=== PATIENT | female | born 1940 | race Caucasian/White ===

== ENCOUNTER 2019-11-25 15:30 | Emergency (ER) | payer MEDICARE, BC ==
[2019-11-25 15:50] VITALS: BP 171/88; PULSE 71
[2019-11-25] MEDS ORDERED: Sodium Chloride 0.9% 10 ML Syringe FLUSH PRN (16:07)
--- NOTE | 2019-11-25 16:40 | EDM.PDOC ---
ED HPI GENERAL MEDICAL PROBLEM - General Chief Complaint: Chest Pain Stated Complaint: CHEST PAIN Time Seen by Provider: 11/25/19 16:11 Source of Information: Reports: Patient History Limitations: Reports: No Limitations - History of Present Illness INITIAL COMMENTS - FREE TEXT/NARRATIVE: Patient is a 79-year-old female presenting to the emergency department with complaints of intermittent left-sided chest pain over the last 1 to 2 weeks. She describes it as a sharp pain in her left chest wall that is worse with deep breathing. She also complains of feeling occasionally "off balance "but states that she stays very busy. She denies any headaches, confusion, shortness of breath, diaphoresis, or nausea associated with these events. She denies any significant cardiac history. Pain was not present at the time of my exam. - Related Data Allergies Allergy/AdvReac Type Severity Reaction Status Date / Time infliximab [From Remicade] Allergy Airway Verified 11/25/19 15:50 Tightness Home Meds: Home Meds Methotrexate 2.5 mg PO WE 04/11/14 [History] Tocilizumab [Actemra] 162 mg SQ 04/11/14 [History] Escitalopram Oxalate [Lexapro] 10 mg PO DAILY 11/25/19 [History] Folic Acid 3 mg PO DAILY 11/25/19 [History] Ibuprofen 200 mg PO Q6HR PRN 11/25/19 [History] LORazepam [Ativan] 0.5 mg PO DAILY PRN 11/25/19 [History] Meloxicam 15 mg PO DAILY 11/25/19 [History] Pantoprazole [ProTONIX] 40 mg PO DAILY 11/25/19 [History] tiZANidine HCl [Tizanidine HCl] 1 tab PO ASDIRECTED 11/25/19 [History] Past Medical History HEENT History: Reports: Impaired Vision Musculoskeletal History: Reports: Arthritis - Past Surgical History Female Surgical History: Reports: Breast Biopsy, Hysterectomy, Other (See Below) Musculoskeletal Surgical History: Reports: Carpal Tunnel, Knee Replacement, Other (See Below) Social & Family History - Family History Family Medical History: Noncontributory - Tobacco Use Smoking Status *Q: Never Smoker ED ROS GENERAL - Review of Systems Review Of Systems: See Below Constitutional: Reports: No Symptoms. Denies: Fever, Chills, Weakness HEENT: Reports: No Symptoms Respiratory: Denies: Shortness of Breath, Cough Cardiovascular: Reports: Chest Pain. Denies: Dyspnea on Exertion, Syncope Endocrine: Reports: No Symptoms GI/Abdominal: Reports: No Symptoms : Reports: No Symptoms Musculoskeletal: Reports: No Symptoms Skin: Reports: No Symptoms Neurological: Reports: Dizziness (occasional) Psychiatric: Reports: No Symptoms Hematologic/Lymphatic: Reports: No Symptoms Immunologic: Reports: No Symptoms ED EXAM, GENERAL - Physical Exam Exam: See Below General Appearance: Alert, WD/WN, No Apparent Distress Respiratory/Chest: No Respiratory Distress, Lungs Clear, Normal Breath Sounds, No Accessory Muscle Use, Chest Non-Tender Cardiovascular: Normal Peripheral Pulses, Regular Rate, Rhythm, No Edema, No Gallop, No JVD, No Murmur, No Rub GI/Abdominal: Normal Bowel Sounds, Soft, Non-Tender, No Organomegaly, No Distention, No Abnormal Bruit, No Mass Neurological: Alert, Oriented, CN II-XII Intact, Normal Cognition, Normal Gait, Normal Reflexes, No Motor/Sensory Deficits Psychiatric: Normal Affect, Normal Mood Skin Exam: Warm, Dry, Intact, Normal Color, No Rash EKG INTERPRETATION EKG Date: 11/26/19 Time: 16:34 Rhythm: NSR Rate (Beats/Min): 64 [place]: Normal P-Wave: Present () QRS: Normal ST-T: Normal () QT: Normal Course - Vital Signs Last Recorded V/S: Last Vital Signs Temp 97.8 F 11/25/19 15:47 Pulse 71 11/25/19 15:47 Resp 16 11/25/19 15:47 BP 171/88 H 11/25/19 15:47 Pulse Ox 95 11/25/19 15:47 - Orders/Labs/Meds Orders: Active Orders 24 hr Category Date Time Status Peripheral IV Insertion Adult [OM.PC] Stat Oth 11/25/19 16:07 Ordered Labs: Laboratory Tests 11/25/19 11/25/19 11/25/19 Range/Units 16:28 16:28 16:28 WBC 7.32 (3.98-10.04) K/mm3 RBC 3.93 L (3.98-5.22) M/mm3 Hgb 11.5 D (11.2-15.7) gm/dl Hct 36.0 (34.1-44.9) % MCV 91.6 (79.4-94.8) fl MCH 29.3 (25.6-32.2) pg MCHC 31.9 L (32.2-35.5) g/dl RDW Std Deviation 45.1 (36.4-46.3) fL Plt Count 218 (182-369) K/mm3 MPV 9.1 L (9.4-12.3) fl Neut % (Auto) 68.3 (34.0-71.1) % Lymph % (Auto) 18.7 L (19.3-51.7) % [place] % (Auto) 10.8 (4.7-12.5) % Eos % (Auto) 1.8 (0.7-5.8) Baso % (Auto) 0.3 (0.1-1.2) % Neut # (Auto) 5.00 (1.56-6.13) K/mm3 Lymph # (Auto) 1.37 (1.18-3.74) K/mm3 [place] # (Auto) 0.79 H (0.24-0.36) K/mm3 Eos # (Auto) 0.13 (0.04-0.36) K/mm3 Baso # (Auto) 0.02 (0.01-0.08) K/mm3 D-Dimer, Quantitative 0.42 (0.19-0.50) mg/L Sodium 137 (136-145) mEq/L Potassium 4.2 (3.5-5.1) mEq/L Chloride 102 (98-107) mEq/L Carbon Dioxide 29 (21-32) mEq/L Anion Gap 10.2 (5-15) BUN 18 (7-18) mg/dL Creatinine 0.9 (0.55-1.02) mg/dL Est Cr Clr Drug Dosing TNP Estimated GFR (MDRD) > 60 (>60) mL/min BUN/Creatinine Ratio 20.0 H (14-18) Glucose 109 (83-115) mg/dL Calcium 8.8 (8.5-10.1) mg/dL Total Bilirubin 0.5 (0.2-1.0) mg/dL AST 25 (15-37) U/L ALT 29 (14-59) U/L Alkaline Phosphatase 72 (46-116) U/L Troponin I < 0.017 (0.00-0.056) ng/mL C-Reactive Protein 0.3 (<1.0) mg/dL Total Protein 6.2 L (6.4-8.2) g/dl Albumin 3.4 (3.4-5.0) g/dl Globulin 2.8 gm/dL Albumin/Globulin Ratio 1.2 (1-2) Meds: Medications Discontinued Medications Generic Name Dose Route Start Last Admin Trade Name Freq PRN Reason Stop Dose Admin Sodium Chloride 10 ml 11/25/19 16:07 Saline Flush FLUSH ASDIRECTED PRN Keep Vein Open - Re-Assessments/Exams Free Text/Narrative Re-Assessment/Exam: Patient is a 79-year-old female presenting to the emergency department with complaints of intermittent left-sided chest pain worse with deep breathing over the course of the last few weeks. She also states she occasionally feels "off balance "when she is up moving around, however she feels this may be related to over exerting herself as she states she is always busy. Chest pain was not present at the time of my exam, however she does have some tenderness to her left chest wall. She denies any shortness of breath or diaphoresis associated with this pain. She has no significant cardiac history. Denies any recent headaches. I have ordered a CBC, CMP, CRP, d-dimer, troponin, chest x-ray, and an EKG of her heart. 11/25/19 18:17 11/25/19 18:20 Hematology was grossly unremarkable. A d-dimer was negative. Troponin was negative. Her electrolytes were all normal. EKG showed a normal sinus rhythm with no ischemic changes. Chest x-ray was normal. Discussed these findings with the patient. My suspicion is that she is having musculoskeletal chest wall pain which is why it is tender to palpation and that occasionally she has muscle spasms associated with it. Recommend that she use [id number] Tylenol and ibuprofen as needed. Discussed that applying heat to the area may also be beneficial. She is in agreement with this plan. Discharge instructions as documented. Departure - Departure Time of Disposition: 18:20 Disposition: Home, Self-Care 01 Condition: Good Clinical Impression: Left-sided chest wall pain Instructions: Chest Wall Pain, [id number] Referrals: Kathleen Francisco MD [Primary Care Provider] - Forms: ED Department Discharge Additional Instructions: You were seen in the emergency department today for intermittent left-sided chest pain over the last few weeks. Your work-up included blood work, an EKG of your heart, and a chest x-ray. Your work-up was completely normal. There is no evidence of a blood clot either in your lungs or your legs. Your troponin which is your cardiac enzyme was also normal indicating that this pain is likely not related to your heart. Your EKG was normal and showed no evidence of cardiac involvement. Your chest x-ray was also found to be normal. On exam, your chest wall was tender when pushed on. This raises the likelihood that your pain is musculoskeletal in nature and that the intermittent pain you are experiencing is likely spasms of the chest wall muscles. Recommend that you use [id number] Tylenol and ibuprofen as needed for pain. Applying heat to the area may also be beneficial. If you experience any new or worsening symptoms of concern, please do not hesitate to return to the emergency department. Sepsis Event Note (ED) - Evaluation Sepsis Screening Result: No Definite Risk - Focused Exam Vital Signs: Vital Signs Temp Pulse Resp BP Pulse Ox 11/25/19 15:47 97.8 F 71 16 171/88 H 95 - My Orders Last 24 Hours: My Active Orders 11/25/19 16:07 Peripheral IV Insertion Adult [OM.PC] Stat - Assessment/Plan Last 24 Hours: My Active Orders 11/25/19 16:07 Peripheral IV Insertion Adult [OM.PC] Stat
--- NOTE | 2019-11-25 17:00 | CR ---
Chest: 2 views of the chest was obtained. Comparison: No previous chest x-ray is available. Heart is enlarged. Tortuous thoracic aorta is seen. Lungs are clear with no acute parenchymal change. Slight scoliosis is noted within the spine with mild scattered degenerative change. Previous lumbar spine surgery is noted. Impression: 1. Findings as described above. 2. Nothing acute is appreciated. Diagnostic code #2 Study was dictated in [facility]T
== END 2019-11-25 18:30 | disposition home or self-care (01) ==
LOC: JD.ED 15:30
DX: R07.89 Other chest pain (principal); M19.90 Unspecified osteoarthritis, unspecified site; Z79.899 Other long term (current) drug therapy; Z88.8 Allergy status to other drugs, medicaments and biological substances
CPT/HCPCS: 36415; 71046; 71046-26; 80053; 84484; 85025; 85379; 86140; 93005; 99285-25

== ENCOUNTER → 2021-02-08 | Day surgery (SDC) | payer MEDICARE, BC ==
[2021-02-08] MEDS: Brimonidine 0.2% Ophth Soln 5 ML Bottle EYERT SCH ×2 (09:22→10:26)
[2021-02-08] MEDS: Phenylephrine 2.5% Ophth Soln 2 ML Bot EYERT SCH ×2 (09:32→09:44)
[2021-02-08] MEDS: Tropicamide 1% Ophth Soln 15 ML Bottle EYERT SCH ×2 (09:41→09:47)
[2021-02-08 13:34] VITALS: BP 158/63; PULSE 54
== END ==
LOC: JD.SDS 08:09
PROVIDERS: ATTEND Ophthalmology
DX: H26.493 Other secondary cataract, bilateral (principal); H16.103 Unspecified superficial keratitis, bilateral; H16.223 Keratoconjunctivitis sicca, not specified as Sjogren's, bilateral; H02.831 Dermatochalasis of right upper eyelid; H02.834 Dermatochalasis of left upper eyelid; H35.3131 Nonexudative age-related macular degeneration, bilateral, early dry stage; H35.363 Drusen (degenerative) of macula, bilateral; M06.9 Rheumatoid arthritis, unspecified; Z98.890 Other specified postprocedural states; Z79.899 Other long term (current) drug therapy; Z96.1 Presence of intraocular lens

== ENCOUNTER 2021-04-12 07:16 | Day surgery (SDC) | payer MEDICARE, BC ==
[~2021-04-12 07:16] MED LIST: Lactated Ringers 1,000 ML IV SCH; Lidocaine 1% 4 ML ONE; Lidocaine 1%/Sod Bicarbonate in NS 8.4% 1 ML Syringe IDERM PRN; Propofol 200 MG/20 ML SDV ONE; Sodium Chloride 0.9% 10 ML Syringe FLUSH PRN; Sodium Chloride 0.9% 10 ML Syringe FLUSH SCH
[2021-04-12 08:51] VITALS: PULSE 73
[2021-04-12 09:00] VITALS: BP 139/65
== END 2021-04-12 09:32 | disposition home or self-care (01) ==
LOC: JD.SDS 07:16
PROVIDERS: ATTEND Surgery
DX: Z12.11 Encounter for screening for malignant neoplasm of colon (principal); K57.30 Diverticulosis of large intestine without perforation or abscess without bleeding; K31.89 Other diseases of stomach and duodenum; K31.7 Polyp of stomach and duodenum; K44.9 Diaphragmatic hernia without obstruction or gangrene; K21.00 Gastro-esophageal reflux disease with esophagitis, without bleeding; K64.8 Other hemorrhoids; Z86.010 Personal history of colon polyps; F32.A Depression, unspecified; H21.9 Unspecified disorder of iris and ciliary body; M81.0 Age-related osteoporosis without current pathological fracture; M06.9 Rheumatoid arthritis, unspecified; Z88.8 Allergy status to other drugs, medicaments and biological substances; Z79.899 Other long term (current) drug therapy; F41.9 Anxiety disorder, unspecified; Z98.890 Other specified postprocedural states
CPT/HCPCS: 43239; G0105; J2704; J7120; 00812; 88305; 99100

== ENCOUNTER 2023-06-16 11:47 | Emergency (ER) | payer MEDICARE, BC ==
[2023-06-16 12:06] VITALS: BP 147/74; PULSE 80
[2023-06-16] MEDS ORDERED: Sodium Chloride 0.9% 10 ML Syringe FLUSH PRN (12:14)
[2023-06-16 12:26] LABS: BASOPHILS PERCENT AUTO 0.5 % (0.0-1.0); EOSINOPHILS ABSOLUTE AUTO 0.2 K/mm3 (0.0-0.4); EOSINOPHILS PERCENT AUTO 4.1 % (0.0-6.0); HEMATOCRIT 36.3 % (37.0-47.0); HEMOGLOBIN 11.9 gm/dl (12.0-16.0); IMMATURE GRAN ABSOLUTE AUTO 0.05 K/mm3 (0.00-0.05); IMMATURE GRAN PERCENT AUTO 1.2 % (0.0-0.4); LYMPHOCYTES ABSOLUTE AUTO 1.1 K/mm3 (1.0-4.8); MEAN CORPUSCULAR HEMOGLOBIN 29.6 pg (28.0-32.0); MEAN CORPUSCULAR HGB CONC 32.8 g/dl (32.0-36.0); MEAN CORPUSCULAR VOLUME 90.3 fl (83.0-99.0); MEAN PLATELET VOLUME 9.4 fl (9.4-12.3); MONOCYTES ABSOLUTE AUTO 0.6 K/mm3 (0.0-0.8); MONOCYTES PERCENT AUTO 14.9 % (0.0-8.0); NEUTROPHILS ABSOLUTE AUTO 2.2 K/mm3 (1.8-7.7); NEUTROPHILS PERCENT AUTO 53.3 % (41.0-71.0); PLATELET COUNT,PLT 173 K/mm3 (150-400); RED BLOOD CELL COUNT 4.02 M/mm3 (4.10-5.30); WHITE BLOOD CELL COUNT,WBC 4.15 K/mm3 (3.9-11.3)
[2023-06-16 12:54] LABS: A/G RATIO 1.4 (1-2); ALANINE AMINOTRANSFERASE,ALT 26 U/L (14-59); ALBUMIN 3.8 g/dl (3.4-5.0); ALKALINE PHOSPHATASE 63 U/L (46-116); ANION GAP 13.1 (5-15); ASPARTATE AMNIOTRANSFERASE,AST 26 U/L (15-37); BILIRUBIN TOTAL 0.7 mg/dL (0.2-1.0); BLOOD UREA NITROGEN,BUN 19 mg/dL (7-18); BUN/CREATININE RATIO 23.8 (14-18); C-REACTIVE PROTEIN 0.08 mg/dL (<0.30); CALCIUM 9.4 mg/dL (8.5-10.1); CARBON DIOXIDE,CO2 28 mEq/L (21-32); CHLORIDE,CL 103 mEq/L (98-107); CREATININE 0.8 mg/dL (0.55-1.02); ESTIMATED GFR 73 mL/min (>60); GLUCOSE RANDOM 90 mg/dL (70-99); MAGNESIUM 1.7 mg/dL (1.8-2.4); POTASSIUM,K 4.1 mEq/L (3.5-5.1); PROTEIN TOTAL,TP 6.5 g/dl (6.4-8.2); SODIUM,NA 140 mEq/L (136-145); TROPONIN I HIGH SENSITIVITY 7 pg/mL (<=51); TSH 2.028 uIU/mL (0.358-3.74)
[2023-06-16 13:05] LABS: APPEARANCE,URINE CLEAR (Clear); BILIRUBIN,URINE NEGATIVE (Negative); COLOR,URINE YELLOW (Yellow); GLUCOSE,URINE NEGATIVE (Negative); KETONES,URINE NEGATIVE (Negative); LEUKOCYTE ESTERASE,URINE 1+ (Negative); NITRITE,URINE NEGATIVE (Negative); OCCULT BLOOD,URINE NEGATIVE (Negative); PROTEIN,URINE NEGATIVE (Negative); UROBILINOGEN,URINE 0.2 (0.2-1.0)
[2023-06-16 13:24] LABS: BACTERIA,URINE FEW /hpf (FEW); MUCUS,URINE RARE /hpf (FEW); RBC,URINE 0-5 /hpf (0-5); SQUAMOUS EPITHELIAL CELLS,UR 0-5 /hpf (0-5); WBC,URINE 0-5 /hpf (0-5)
[2023-06-16] MEDS: Lactated Ringers 1,000 ML IV SCH (14:00)
== END 2023-06-16 15:28 | disposition home or self-care (01) ==
LOC: JD.ED 11:47
DX: R29.810 Facial weakness (principal); R07.89 Other chest pain; K21.9 Gastro-esophageal reflux disease without esophagitis; Z88.8 Allergy status to other drugs, medicaments and biological substances; Z79.899 Other long term (current) drug therapy
CPT/HCPCS: 36415; 70450; 80053; 81001; 81003; 83735; 83880; 84443; 84484; 85025; 86140; 87086; 93005; 96360; 99285; J7120

== ENCOUNTER 2023-07-11 08:07 | Inpatient (IN) | payer MEDICARE, BC ==
[2023-07-11] MEDS: Metoclopramide 10 MG/2 ML SDV IVPUSH ONE (10:13)
[2023-07-11] MEDS: diphenhydrAMINE 50 MG/ML SDV IVPUSH ONE (10:15)
[2023-07-11] MEDS: HYDROmorphone 0.5 MG/0.5 ML Syringe IVPUSH ONE ×2 (10:17→15:18)
[2023-07-11 10:47] LABS: HEMATOCRIT 40.1 % (37.0-47.0); HEMOGLOBIN 13.1 gm/dl (12.0-16.0); MEAN CORPUSCULAR HEMOGLOBIN 30.3 pg (28.0-32.0); MEAN CORPUSCULAR HGB CONC 32.7 g/dl (32.0-36.0); MEAN CORPUSCULAR VOLUME 92.6 fl (83.0-99.0); MEAN PLATELET VOLUME 10.1 fl (9.4-12.3); PLATELET COUNT,PLT 136 K/mm3 (150-400); RED BLOOD CELL COUNT 4.33 M/mm3 (4.10-5.30); WHITE BLOOD CELL COUNT,WBC 8.71 K/mm3 (3.9-11.3)
[2023-07-11 10:52] LABS: LACTIC ACID 1.5 mmol/L (0.4-2.0)
[2023-07-11 10:53] LABS: INR 0.96; PROTHROMBIN TIME 10.3 SECONDS (9.7-12.0)
[2023-07-11 10:54] LABS: PTT,PARTIAL THROMBOPLSTIN TIME 24.5 SECONDS (21.7-31.4)
[2023-07-11 10:55] LABS: A/G RATIO 1.4 (1-2); ANION GAP 12.7 (5-15); BILIRUBIN TOTAL 0.9 mg/dL (0.2-1.0); BUN/CREATININE RATIO 13.3 (14-18); C-REACTIVE PROTEIN 0.31 mg/dL (<0.30); CREATININE 0.9 mg/dL (0.55-1.02); EST CRCL DRUG DOSING (CG) 42.62 mL/min; MAGNESIUM 1.6 mg/dL (1.8-2.4); POTASSIUM,K 3.7 mEq/L (3.5-5.1); PROTEIN TOTAL,TP 6.9 g/dl (6.4-8.2)
[2023-07-11] MEDS: Dextrose 5%-0.9% NaCl 1,000 ML IV SCH (11:13)
[2023-07-11] MEDS: cefTRIAXone 2 GM in Sodium Chloride 0.9% 100 ML IV ONE (11:14)
[2023-07-11 12:07] LABS: BAND PERCENT MAN 5 % (0-10); BASOPHILS PERCENT MAN 0 (0.1-1.2); EOSINOPHILS PERCENT MAN 1 % (0.7-5.8); LYMPHOCYTES % ATYPICAL MANUAL 0 %; LYMPHOCYTES PERCENT MAN 10 % (20-40); MONOCYTES PERCENT MAN 1 % (2-10)
[2023-07-11 12:09] LABS: PLATELET COUNT ESTIMATE DECREASED
[2023-07-11] MEDS ORDERED: Ondansetron 4 MG/2 ML SDV IV PRN (14:21)
[2023-07-11] MEDS ORDERED: Ondansetron 4 MG Tab.DIS PO PRN (14:21)
[2023-07-11] MEDS ORDERED: Piperacillin/Tazobactam 4.5 GM in Sodium Chloride 0.9% 100 ML IV SCH (14:30)
[2023-07-11] MEDS: Piperacillin/Tazobactam 4.5 GM in Sodium Chloride 0.9% 100 ML IV ONE (15:35)
[2023-07-11] MEDS: Heparin Sodium 5,000 Units/ML Vial SUBCUT SCH (15:53)
[2023-07-11] MEDS: VANCOmycin 1.25 GM/250 ML 1.25 GM in Premix Bag 1 BAG IV SCH (17:59)
[2023-07-11] MEDS: Acetaminophen/HYDROcodone 325-5 MG Tab PO PRN (18:08)
[2023-07-11 19:43] LABS: APPEARANCE,URINE CLEAR (Clear); BILIRUBIN,URINE NEGATIVE (Negative); COLOR,URINE YELLOW (Yellow); GLUCOSE,URINE NEGATIVE (Negative); KETONES,URINE NEGATIVE (Negative); LEUKOCYTE ESTERASE,URINE TRACE (Negative); NITRITE,URINE NEGATIVE (Negative); OCCULT BLOOD,URINE NEGATIVE (Negative); PROTEIN,URINE 1+ (Negative); UROBILINOGEN,URINE 0.2 (0.2-1.0)
[2023-07-11 19:50] LABS: BACTERIA,URINE MODERATE /hpf (FEW); MUCUS,URINE FEW /hpf (FEW); RBC,URINE 0-5 /hpf (0-5); SQUAMOUS EPITHELIAL CELLS,UR 0-5 /hpf (0-5)
[2023-07-11] MEDS: Piperacillin/Tazobactam 4.5 GM in Sodium Chloride 0.9% 100 ML IV SCH (23:07)
[2023-07-12 05:32] LABS: HEMATOCRIT 33.8 % (37.0-47.0); IMMATURE GRAN ABSOLUTE AUTO 0.14 K/mm3 (0.00-0.05); IMMATURE GRAN PERCENT AUTO 2.2 % (0.0-0.4); LYMPHOCYTES ABSOLUTE AUTO 0.2 K/mm3 (1.0-4.8); LYMPHOCYTES PERCENT AUTO 3.4 % (24.0-44.0); MEAN CORPUSCULAR HEMOGLOBIN 30.5 pg (28.0-32.0); MEAN CORPUSCULAR HGB CONC 33.4 g/dl (32.0-36.0); MEAN CORPUSCULAR VOLUME 91.1 fl (83.0-99.0); MEAN PLATELET VOLUME 10.2 fl (9.4-12.3); MONOCYTES ABSOLUTE AUTO 0.1 K/mm3 (0.0-0.8); NEUTROPHILS PERCENT AUTO 92.4 % (41.0-71.0); PLATELET COUNT,PLT 87 K/mm3 (150-400); RED BLOOD CELL COUNT 3.71 M/mm3 (4.10-5.30); WHITE BLOOD CELL COUNT,WBC 6.46 K/mm3 (3.9-11.3)
[2023-07-12 05:35] LABS: HEMOGLOBIN 11.3 gm/dl (12.0-16.0)
[2023-07-12 05:38] LABS: ANION GAP 14.4 (5-15); BUN/CREATININE RATIO 12.9 (14-18); CALCIUM 7.8 mg/dL (8.5-10.1); CREATININE 0.7 mg/dL (0.55-1.02); EST CRCL DRUG DOSING (CG) 52.58 mL/min; POTASSIUM,K 3.4 mEq/L (3.5-5.1); VANCOMYCIN RANDOM 6.2 ug/mL
[2023-07-12 05:51] LABS: SLIDE REVIEW ABNORMAL SMEAR
[2023-07-12] MEDS ORDERED: ESTRADIOL TOP SCH (08:00)
[2023-07-12] MEDS ORDERED: D-Mannose 500 MG Cap PO SCH (09:00)
[2023-07-12] MEDS: Folic Acid 1 MG Tab PO SCH (09:00)
[2023-07-12] MEDS: traMADol 50 MG Tab PO PRN (09:01)
[2023-07-12] MEDS: Pantoprazole 40 MG Tab.CR PO SCH (09:01)
[2023-07-12] MEDS: DULoxetine 30 MG Cap PO SCH (09:01)
[2023-07-12] MEDS: Acetaminophen 325 MG Tab PO PRN (10:21)
[2023-07-12] MEDS: VANCOmycin 1.5 GM/300 ML 1.5 GM in Premix Bag 1 BAG IV SCH (18:14)
[2023-07-12] MEDS: Magnesium Oxide 400 MG Tab PO SCH (18:19)
[2023-07-12] MEDS: Docusate Sodium 100 MG Cap PO PRN (18:22)
[2023-07-13] MEDS: ceFAZolin 2 GM in Sodium Chloride 0.9% 50 ML IV SCH (08:25)
[2023-07-13] MEDS: Polyethylene Glycol 3350 Powder 17 GM Packet PO SCH (17:43)
[2023-07-14 05:29] LABS: BASOPHILS PERCENT AUTO 0.4 % (0.0-1.0); EOSINOPHILS ABSOLUTE AUTO 0.1 K/mm3 (0.0-0.4); EOSINOPHILS PERCENT AUTO 0.9 % (0.0-6.0); HEMATOCRIT 34.3 % (37.0-47.0); HEMOGLOBIN 11.7 gm/dl (12.0-16.0); IMMATURE GRAN ABSOLUTE AUTO 0.07 K/mm3 (0.00-0.05); IMMATURE GRAN PERCENT AUTO 1.3 % (0.0-0.4); LYMPHOCYTES ABSOLUTE AUTO 1.2 K/mm3 (1.0-4.8); LYMPHOCYTES PERCENT AUTO 22.6 % (24.0-44.0); MEAN CORPUSCULAR HEMOGLOBIN 30.5 pg (28.0-32.0); MEAN CORPUSCULAR HGB CONC 34.1 g/dl (32.0-36.0); MEAN CORPUSCULAR VOLUME 89.3 fl (83.0-99.0); MEAN PLATELET VOLUME 10.9 fl (9.4-12.3); MONOCYTES ABSOLUTE AUTO 0.7 K/mm3 (0.0-0.8); MONOCYTES PERCENT AUTO 12.3 % (0.0-8.0); NEUTROPHILS ABSOLUTE AUTO 3.3 K/mm3 (1.8-7.7); NEUTROPHILS PERCENT AUTO 62.5 % (41.0-71.0); PLATELET COUNT,PLT 85 K/mm3 (150-400); RED BLOOD CELL COUNT 3.84 M/mm3 (4.10-5.30); WHITE BLOOD CELL COUNT,WBC 5.35 K/mm3 (3.9-11.3)
[2023-07-14 05:47] LABS: ANION GAP 10.3 (5-15); BUN/CREATININE RATIO 7.1 (14-18); CALCIUM 8.3 mg/dL (8.5-10.1); CREATININE 0.7 mg/dL (0.55-1.02); EST CRCL DRUG DOSING (CG) 52.58 mL/min; POTASSIUM,K 3.3 mEq/L (3.5-5.1)
[2023-07-14 05:55] LABS: SLIDE REVIEW ABNORMAL SMEAR
[2023-07-14] MEDS: Bisacodyl 10 MG Supp RECTAL ONE (13:41)
[2023-07-14] MEDS: VANCOmycin 1.5 GM/300 ML 1.5 GM in Premix Bag 1 BAG IV SCH (17:07)
[2023-07-15 04:50] LABS: BASOPHILS PERCENT AUTO 0.4 % (0.0-1.0); EOSINOPHILS PERCENT AUTO 0.6 % (0.0-6.0); HEMATOCRIT 31.5 % (37.0-47.0); HEMOGLOBIN 10.7 gm/dl (12.0-16.0); IMMATURE GRAN ABSOLUTE AUTO 0.07 K/mm3 (0.00-0.05); IMMATURE GRAN PERCENT AUTO 1.5 % (0.0-0.4); LYMPHOCYTES ABSOLUTE AUTO 1.4 K/mm3 (1.0-4.8); LYMPHOCYTES PERCENT AUTO 29.5 % (24.0-44.0); MEAN CORPUSCULAR VOLUME 88.2 fl (83.0-99.0); MEAN PLATELET VOLUME 9.9 fl (9.4-12.3); MONOCYTES ABSOLUTE AUTO 0.9 K/mm3 (0.0-0.8); MONOCYTES PERCENT AUTO 18.9 % (0.0-8.0); NEUTROPHILS ABSOLUTE AUTO 2.3 K/mm3 (1.8-7.7); NEUTROPHILS PERCENT AUTO 49.1 % (41.0-71.0); PLATELET COUNT,PLT 96 K/mm3 (150-400); RED BLOOD CELL COUNT 3.57 M/mm3 (4.10-5.30); WHITE BLOOD CELL COUNT,WBC 4.75 K/mm3 (3.9-11.3)
[2023-07-15 05:17] LABS: A/G RATIO 1.1 (1-2); ALBUMIN 2.8 g/dl (3.4-5.0); ANION GAP 14.4 (5-15); BILIRUBIN TOTAL 0.4 mg/dL (0.2-1.0); C-REACTIVE PROTEIN 0.29 mg/dL (<0.30); CALCIUM 8.1 mg/dL (8.5-10.1); CREATININE 0.5 mg/dL (0.55-1.02); EST CRCL DRUG DOSING (CG) 73.62 mL/min; POTASSIUM,K 3.4 mEq/L (3.5-5.1); PROTEIN TOTAL,TP 5.3 g/dl (6.4-8.2)
[2023-07-15 05:47] LABS: SLIDE REVIEW ABNORMAL SMEAR
[2023-07-15 15:12] VITALS: BP 135/89; PULSE 75
== END 2023-07-15 16:35 | DRG 540 ==
LOC: JD.ED 08:07 → JD.MS 14:21
PROVIDERS: ADMIT Hospitalist; ATTEND Internal Medicine
DX: M86.9 Osteomyelitis, unspecified (principal); D84.821 Immunodeficiency due to drugs; L03.116 Cellulitis of left lower limb; D84.9 Immunodeficiency, unspecified; R78.81 Bacteremia; M00.072 Staphylococcal arthritis, left ankle and foot; Z66 Do not resuscitate; M21.612 Bunion of left foot; H54.7 Unspecified visual loss; K21.9 Gastro-esophageal reflux disease without esophagitis; Z96.659 Presence of unspecified artificial knee joint; I50.9 Heart failure, unspecified; M48.00 Spinal stenosis, site unspecified; M05.79 Rheumatoid arthritis with rheumatoid factor of multiple sites without organ or systems involvement; R41.0 Disorientation, unspecified; B95.61 Methicillin susceptible Staphylococcus aureus infection as the cause of diseases classified elsewhere; Z91.030 Bee allergy status; Z88.8 Allergy status to other drugs, medicaments and biological substances; Z79.899 Other long term (current) drug therapy; Z79.52 Long term (current) use of systemic steroids; Z90.710 Acquired absence of both cervix and uterus; Z98.890 Other specified postprocedural states
CPT/HCPCS: 36415; 71045; 80053; 83605; 83735; 83880; 84484; 85007; 85027; 85610; 85652; 85730; 86140; 87040 ×2; 87077; 87186; 93005; 96360; 96361; 99285; J0696; J1170; J1200; J2765; J3490; J7042; 73630-26-LT; 73630-LT; 73718-26-LT; 73718-LT; 80048; 80202; 81001; 85025; 87154; 93010; 93307; 97110-GP; 97162-GP; 97530-GP; 99222; 99232; 99239; 99284; A9270-GY; J0690; J1644; J2543; J3370; J7050

== ENCOUNTER 2023-07-30 22:27 | Emergency (ER) | payer MEDICARE, BC ==
[2023-07-30] MEDS: Sodium Chloride 0.9% 1,000 ML IV ONE (23:30)
[2023-07-30] MEDS: Ondansetron 4 MG/2 ML SDV IVPUSH ONE (23:30)
[2023-07-30 23:37] LABS: BASOPHILS PERCENT AUTO 0.2 % (0.0-1.0); EOSINOPHILS PERCENT AUTO 0.1 % (0.0-6.0); HEMATOCRIT 35.8 % (37.0-47.0); HEMOGLOBIN 12.1 gm/dl (12.0-16.0); IMMATURE GRAN ABSOLUTE AUTO 0.09 K/mm3 (0.00-0.05); LYMPHOCYTES ABSOLUTE AUTO 0.3 K/mm3 (1.0-4.8); LYMPHOCYTES PERCENT AUTO 3.2 % (24.0-44.0); MEAN CORPUSCULAR HEMOGLOBIN 30.2 pg (28.0-32.0); MEAN CORPUSCULAR HGB CONC 33.8 g/dl (32.0-36.0); MEAN CORPUSCULAR VOLUME 89.3 fl (83.0-99.0); MEAN PLATELET VOLUME 10.6 fl (9.4-12.3); MONOCYTES ABSOLUTE AUTO 0.5 K/mm3 (0.0-0.8); MONOCYTES PERCENT AUTO 5.2 % (0.0-8.0); NEUTROPHILS ABSOLUTE AUTO 8.3 K/mm3 (1.8-7.7); NEUTROPHILS PERCENT AUTO 90.3 % (41.0-71.0); PLATELET COUNT,PLT 123 K/mm3 (150-400); RED BLOOD CELL COUNT 4.01 M/mm3 (4.10-5.30)
[2023-07-30 23:56] LABS: A/G RATIO 1.2 (1-2); ALBUMIN 3.5 g/dl (3.4-5.0); ANION GAP 16.6 (5-15); BUN/CREATININE RATIO 8.9 (14-18); CALCIUM 8.9 mg/dL (8.5-10.1); CREATININE 0.9 mg/dL (0.55-1.02); EST CRCL DRUG DOSING (CG) 39.18 mL/min; POTASSIUM,K 3.6 mEq/L (3.5-5.1); PROTEIN TOTAL,TP 6.5 g/dl (6.4-8.2)
[2023-07-31 00:26] LABS: SLIDE REVIEW NORMAL SMEAR
[2023-07-31] MEDS: Iopamidol 612 MG/ML 100 ML Bottle IVPUSH ONE (00:59)
[2023-07-31 01:41] LABS: APPEARANCE,URINE CLEAR (Clear); BILIRUBIN,URINE NEGATIVE (Negative); COLOR,URINE YELLOW (Yellow); GLUCOSE,URINE NEGATIVE (Negative); KETONES,URINE 2+ (Negative); LEUKOCYTE ESTERASE,URINE 2+ (Negative); NITRITE,URINE POSITIVE (Negative); OCCULT BLOOD,URINE 1+ (Negative); PROTEIN,URINE TRACE (Negative); UROBILINOGEN,URINE 0.2 (0.2-1.0)
[2023-07-31 01:54] LABS: BACTERIA,URINE MANY /hpf (FEW); EPITHELIAL CELLS,URINE 0-5 /hpf (0-5); RBC,URINE 0-5 /hpf (0-5); WBC CLUMPS,URINE FEW /hpf (NOT SEEN)
[2023-07-31 01:55] LABS: MUCUS,URINE NOT SEEN /hpf (FEW)
[2023-07-31] MEDS: Piperacillin/Tazobactam 3.375 GM in Sodium Chloride 0.9% 100 ML IV ONE (02:40)
[2023-07-31] MEDS: Sodium Chloride 0.9% 1,000 ML IV ONE (02:40)
[2023-07-31] MEDS: Morphine 2 MG/ML SYRINGE IVPUSH ONE (03:05)
[2023-07-31] MEDS: Ondansetron 4 MG/2 ML SDV IVPUSH ONE (03:19)
[2023-07-31] MEDS ORDERED: Sodium Chloride 0.9% 1,000 ML IV ONE (03:59)
[2023-07-31 05:08] VITALS: BP 156/87; PULSE 128
== END 2023-07-31 04:35 ==
LOC: JD.ED 22:27
DX: G06.1 Intraspinal abscess and granuloma (principal); R41.0 Disorientation, unspecified; R10.30 Lower abdominal pain, unspecified; K21.9 Gastro-esophageal reflux disease without esophagitis; Z90.49 Acquired absence of other specified parts of digestive tract; Z79.899 Other long term (current) drug therapy; Z91.030 Bee allergy status; Z88.8 Allergy status to other drugs, medicaments and biological substances
CPT/HCPCS: 36415; 74177; 80053; 81001; 83605; 83690; 85025; 87040; 87077; 87086; 87088; 87154; 87186; 96361; 96365; 96367; 96375; 96376; 99285; J2270; J2405; J2543; J3370; J3490; J7030; J7050; Q9967